=== PATIENT | female | born 1990 | race Caucasian/White ===

== ENCOUNTER 2018-07-27 18:20 | Emergency (ER) | payer MEDICAID ==
[~2018-07-27] VITALS: Wt 135.0 kg
[2018-07-27 18:24] VITALS: BP 145/80; PULSE 101; RESP 16
--- NOTE | 2018-07-27 19:43 | ERD ---
ER Documentation Chief Complaint Chief Complaint VAGINAL BLEEDING DX VAG TEAR X2DAYS HPI This is a 27-year-old female who is had 2 days of vaginal bleeding.. She went to an outside facility and they did labs and ultrasound today which she has copies of. I reviewed the labs and there is no evidence of anemia. Her is negative. Ultrasound was negative. Patient was sent here today because they told her she may have a vaginal tear. She has had no fevers. No urinary symptoms. ROS All systems reviewed and are negative except as per history of present illness. Allergies Allergies: Coded Allergies: No Known Allergy (Unverified , 07/27/18) PMhx/Soc Medical and Surgical Hx: pt denies Medical Hx, pt denies Surgical Hx Hx Alcohol Use: No Hx Substance Use: No Hx Tobacco Use: No Smoking Status: Never smoker FmHx Family History: No diabetes Physical Exam Vitals Vital Signs Date Temp Pulse Resp B/P (MAP) Pulse Ox O2 O2 Flow FiO2 Time Delivery Rate 07/27/18 98.2 101 16 145/80 99 18:24 (101) Physical Exam Const: No acute distress Head: Atraumatic Eyes: Normal Conjunctiva ENT: Normal External Ears, Nose and Mouth. Neck: Full range of motion. No meningismus. Resp: Clear to auscultation bilaterally Cardio: Regular rate and rhythm, no murmurs : Performed with female ob gyn physician assistant Pat FLORES. No active bleeding, no evidence of cuts or tears, no abscess Procedures/MDM Patient was here for vaginal bleeding. She had blood work done today which I reviewed it was all unremarkable. She is not . Her ultrasound done today also was unremarkable. She is hemodynamically stable. No evidence of laceration that needs repair at this time. She is well-appearing in no distress. She should follow-up with primary care/[facility]. Patient counseled regarding my diagnostic impression and care plan. Prior to discharge all questions answered. Pt agrees with treatment plan and understands strict return precautions. Pt is instructed to follow up with primary care provider within 24- 48 hours. Precautionary instructions provided including instructions to return to the ER if not improving or for any worsening or changing symptoms or concerns. Departure Diagnosis: Primary Impression: Vaginal bleeding Condition: Stable DESTINY WOMACK PA-C Jul 27, 2018 19:43
== END 2018-07-27 19:54 | disposition home or self-care (01) ==
LOC: FTE 18:20
DX: N93.9 Abnormal uterine and vaginal bleeding, unspecified (principal)
CPT/HCPCS: 99283